=== PATIENT | male | born 1950 ===

== ENCOUNTER 2018-12-24 11:53 | Outpatient (REF) | payer MEDICARE, SELFPAY ==
[2018-12-24 22:43] LABS: Anion Gap 6.7 mmol/L (3-11); BUN 18 mg/dL (7-18); CO2 27.3 mmol/L (21.0-32.0); CREATININE 0.76 mg/dL (0.70-1.30); Calcium 8.1 mg/dL (8.5-10.1); Chloride 107 mmol/L (98-107); Cholesterol 150 mg/dL (50-200); Folate 14.8 ng/mL (8.6-20.0); Glucose 92 mg/dL (70-100); HDL Cholesterol 40 mg/dL (40-60); Potassium 4.2 mmol/L (3.5-5.1); Sodium 141 mmol/L (136-145); Triglyceride < 25 mg/dL (30-150); Vitamin B12 1469 pg/mL (193-986)
[2018-12-24 22:55] LABS: LDL CHOLESTEROL 98 mg/dL (<100)
== END 2018-12-24 12:13 ==
LOC: NCHCN 11:53
PROVIDERS: PCP Family Medicine; Visit Provider Family Medicine
DX: D53.9 Nutritional anemia, unspecified (principal); N40.1 Benign prostatic hyperplasia with lower urinary tract symptoms; Z82.49 Family history of ischemic heart disease and other diseases of the circulatory system; M54.16 Radiculopathy, lumbar region; I10 Essential (primary) hypertension
CPT/HCPCS: 80048; 80061; 83721; 82607; 82746

== ENCOUNTER 2019-04-01 09:32 | Outpatient (REF) | payer MEDICARE, SELFPAY ==
[2019-04-01 22:20] LABS: Abs Immature Grans 0.02 k/cumm (0.0-0.09); Absolute Basophil Count 0.03 k/cumm (0.0-0.2); Absolute Eosinophil Count 0.22 k/cumm (0.0-0.7); Absolute Lymphocyte Count 1.46 k/cumm (1.2-3.4); Absolute Monocyte Count 0.55 k/cumm (0.11-0.7); Absolute Neutrophil Count 3.51 k/cumm (1.2-6.7); Basophils % 0.5; Eosinophils % 3.8; HCT 43.3 % (40.0-50.0); HGB 14.3 g/dL (13.5-17.5); Immature Grans % 0.3; Lymphocytes % 25.2; Mean Corpuscular Hemoglobin 31.7 pg (27.0-33.0); Monocytes % 9.5; Neutrophils % 60.7; Platelet Count 209 x1000/uL (130-400); RBC 4.51 m/cumm (4.50-6.00); RBC Distribution Width 12.5 % (11.8-14.1); White Blood Cell Count 5.79 k/cumm (4.4-10.8)
[2019-04-01 22:38] LABS: TSH (W/Ref FT4) 21.79 uIU/mL (0.36-3.74)
[2019-04-01 23:03] LABS: FREE T4 0.71 ng/dL (0.76-1.46)
[2019-04-03 11:16] LABS: PSA, Screening 0.9 ng/ml (0-4.5)
[2019-04-03 12:31] LABS: Homocysteine 10.9 umol/L (4.5-12.4)
[2019-04-04 11:10] LABS: Methylmalonic Acid 0.18 nmol/mL (<=0.40)
== END 2019-04-01 09:52 ==
LOC: NCHCN 09:32
PROVIDERS: PCP Family Medicine; Visit Provider Family Medicine
DX: D53.9 Nutritional anemia, unspecified (principal); E55.9 Vitamin D deficiency, unspecified; Z82.49 Family history of ischemic heart disease and other diseases of the circulatory system; N40.1 Benign prostatic hyperplasia with lower urinary tract symptoms; Z12.5 Encounter for screening for malignant neoplasm of prostate; Z79.01 Long term (current) use of anticoagulants; M54.16 Radiculopathy, lumbar region
CPT/HCPCS: 80186; 83090; 84153; 84439; 84443; 85025